=== PATIENT | female | born 1995 | race Caucasian/White ===

== ENCOUNTER 2025-07-08 10:59 | Day surgery (SDC) | payer OTHER, BC ==
[~2025-07-08] VITALS: Ht 160 cm; Wt 79.1 kg
[~2025-07-08 10:59] MED LIST: CEFAZOLIN SODIUM 2 GM/20 ML SYR IV SCH; HYDROCODON-ACE1 EAC8 PO; IBLOOD GLUCOSE TEST STRIP 1 EA TEST VI PRN; LACTATED RINGER'S 1,000 ML IV SCH; LIDOCAINE HCL 1% 5 ML SDV INJ ONE
[2025-07-08 11:22] VITALS: BP 135/70
[2025-07-08 11:32] VITALS: BP 135/70
--- NOTE | 2025-07-08 11:57 | NUR ---
VO PER JOSE MARTIN RETAIL MARKETING EXECUTIVE FOR SCOPOLAMINE PATCH. ORDER SENT TO PHARM.
[2025-07-08] MEDS ORDERED: SCOPOLAMINE 1 MG/3 DAYS PATCH 1 EACH TDSY TD ONE (12:00)
[2025-07-08] MEDS ORDERED: LIDOCAINE HCL 2% 5 ML SDV ONE (12:25)
--- NOTE | 2025-07-08 12:25 | NUR ---
PROVIDED PT WITH PILLOW TO ELEVATE LEFT ARM AND ICE PACK IN PLACE. CALL LIGHT WITHIN REACH.
[2025-07-08] MEDS ORDERED: SODIUM CHLORIDE 0.9% 20 ML IV ONE (12:26)
[2025-07-08] MEDS ORDERED: Ropivacaine HCl 0.5% 30 ML VIAL ONE (12:26)
[2025-07-08] MEDS ORDERED: fentaNYL citrate 100 MCG/2 ML VIAL ONE (12:26)
[2025-07-08] MEDS ORDERED: MIDAZOLAM HCL 2 MG/2 ML VIAL ONE (12:26)
[2025-07-08] MEDS ORDERED: DEXAMETHASONE SOD PHOS 4 MG/ML VIAL ONE (12:59)
[2025-07-08] MEDS ORDERED: KETOROLAC TROMETHAMINE 30 MG/ML VIAL ONE (12:59)
[2025-07-08] MEDS ORDERED: NALOXONE HCL 0.4 MG SYR IV PRN (14:45)
[2025-07-08] MEDS ORDERED: fentaNYL citrate 50 MCG/ML SDV IV PRN (14:45)
[2025-07-08] MEDS ORDERED: IBLOOD GLUCOSE TEST STRIP 1 EA TEST VI PRN (14:45)
--- NOTE | 2025-07-08 14:52 | NUR ---
1448-PT UP TO RESTROOM. 1452-PT BACK TO ROOM FROM RESTROOM. IV INFUSING. SCD'S RUNNING. CALL LIGHT WITHIN REACH.
--- NOTE | 2025-07-08 14:52 | NUR ---
1415-HOME ENERGY CONSULTANT SUPERVISOR IN ROOM FOR NERVE BLOCK.
[2025-07-08] MEDS ORDERED: SEVOFLURANE 250 ML BTL INH ONE (16:00)
[2025-07-08] MEDS ORDERED: HYDROCODONE/ACETA 7.5/325 TAB PO PRN (16:45)
--- NOTE | 2025-07-08 16:47 | NUR ---
07/08/25 1647 Rabia Horn 1643: PT ARRIVES TO PACU. REPORT RECEIEVED FROM GROVE SUPERINTENDENT AND HOUSE SHORER.
[2025-07-08] MEDS ORDERED: HYDROCODON-ACE1 EA11 PO (16:48)
[2025-07-08 17:50] VITALS: BP 130/68
--- NOTE | 2025-07-09 06:57 | OR ---
[facility] [address] [place], [place] [address] Signed DATE OF OPERATION: 07/08/2025 SURGEON: Mindy Carias MD PREOPERATIVE DIAGNOSIS: Displaced left distal radius fracture. POSTOPERATIVE DIAGNOSIS: Displaced left distal radius fracture. PROCEDURE PERFORMED: Open reduction and internal fixation of left distal radius. MACHINE TOOL MECHANIC: None. ANESTHESIA: General. BLOOD LOSS: None. TOURNIQUET TIME: 41 minutes. IMPLANTS: Corey small DVR plate with seven screws. BRIEF HISTORY: Corazon is a 30-year-old female, who was brought down from horse, landing awkwardly fracturing her left distal radius. Risks and benefits of operative treatment were discussed with her and she elected to proceed. DESCRIPTION OF PROCEDURE: Once consent was obtained, she was taken to the operating room. After adequate anesthesia, she was placed on the OR table with a hand table. Arm was placed in well-padded proximal arm tourniquet. The arm was prepped and draped in a standard sterile fashion. The arm was exsanguinated using Esmarch bandage. Tourniquet inflated to 200 mmHg. Standard volar approach through a longitudinal incision was taken through skin and subcutaneous tissue and directly down on the FCR. The floor of the FCR sheath Electronically Signed By: MINDY CARIAS MD 07/09/25 0657 PATIENT NAME: CORAZON COURTNEY OPERATIVE REPORT DATE OF : [birth year] REPORT #: [id number] PHYSICIAN: MINDY CARIAS MD PCP: NO PRIMARY CARE PHYSICIAN REPORT IS CONFIDENTIAL AND NOT TO BE RELEASED WITHOUT AUTHORIZATION [facility] [address] [place], [place] [address] Signed was incised longitudinally. The pronator was then incised from its radial attachment and elevated off the bone. The fracture was readily identified and the fracture was reduced and a single K-wire was placed from the radial styloid holding the fracture reduction. The plate was then fashioned to fit the volar surface of the radius and aligned using image intensifier. A central screw was placed to hold it in position. Three screws were placed in the distal portion of the distal radius particularly on the ulnar side and one was placed in the radial styloid. Two more screws were placed proximally. Final radiographs showed good reduction, plate placement and screw lengths. The wound was copiously irrigated with normal saline. The pronator was repaired back into position using 3-0 Monocryl. The subcutaneous tissue and the FCR sheath was repaired using 3-0 Monocryl. The skin was closed with 3-0 Stratafix. The wound was sealed with LiquiBand, Steri-Strips and dressed with Allevyn dressing with sterile cast padding and a radial gutter splint. She tolerated the procedure well. All sponge, needle, and instrument counts were correct. Mindy Carias MD BA/GAURAV /[id number] Copies: ~ Electronically Signed By: MINDY CARIAS MD 07/09/25 0657 PATIENT NAME: CORAZON COURTNEY OPERATIVE REPORT DATE OF : [birth year] REPORT #: [id number] PHYSICIAN: MINDY CARIAS MD PCP: NO PRIMARY CARE PHYSICIAN REPORT IS CONFIDENTIAL AND NOT TO BE RELEASED WITHOUT AUTHORIZATION
== END 2025-07-08 18:00 | disposition home or self-care (01) ==
LOC: DS 10:59
PROVIDERS: ATTEND Specialist
PROC: 0PSJ04Z Reposition Left Radius with Internal Fixation Device, Open Approach (ICD-10-PCS; principal; 2025-07-08 14:00)
DX: S52.572A Other intraarticular fracture of lower end of left radius, initial encounter for closed fracture (principal); G89.18 Other acute postprocedural pain; K21.9 Gastro-esophageal reflux disease without esophagitis; Z88.0 Allergy status to penicillin; V80.010A Animal-rider injured by fall from or being thrown from horse in noncollision accident, initial encounter
CPT/HCPCS: 01830; 64417; 73100; A9270; C1713; J0690; J1100; J1885; J2003; J2250; J2405; J2704; J2795; J3010; J7121